=== PATIENT | female | born 1960 | race Caucasian/White ===

== ENCOUNTER → 2018-08-26 | Outpatient (CLI) | payer OTHER ==
[~2018-08-26] MED LIST: ACID REDUCER75 MG PO; DIAZEPAM2 MG PO; FUROSEMIDE40 MG PO; KLOR-CON 88 ME1 PO; LASIX40 MG PO; LASIX80 MG PO; LISINOPRIL2.5 MG PO; MEDROL DOSEPAK4 MG PO; MOM30 ML PO; MOTRIN800 MG PO; MULTI VITAMINS1 TAB PO; NITROSTAT0.4 MG SL; NORCO 10-325 T1 EACH PO; PLAVIX75 M1 PO; PREDNICOT20 MG PO; RAMIPRIL2.5 MG PO; SLOW-K 8MEQ8 MEQ PO; TYLENOL325 M2 PO; VICODIN 5/500 505 MG PO; VICODIN 500 MG-1 TAB PO; VICODIN1 TAB PO; VOLTAREN50 M1 PO; WELCHOL625 MG PO; XANAX0.25 MG PO; ZOCOR40 MG PO
== END | disposition home or self-care (01) ==
LOC: ORTHO 00:39
DX: R22.31 Localized swelling, mass and lump, right upper limb (principal)

== ENCOUNTER 2019-11-13 11:29 | Emergency (ER) | payer OTHER ==
[~2019-11-13] VITALS: Ht 175.2 cm; Wt 87.1 kg
[2019-11-13 12:12] LABS: BASO % 0.3 % (0.0-1.0); EOS # 0.1 10*3/uL (0.0-0.4); EOS % 0.7 % (1.0-4.0); HEMATOCRIT 31.2 % (37.0-47.0); LYMPH # 2.8 10*3/uL (1.3-4.4); LYMPH % 24.2 % (27.0-41.0); MEAN CELL VOLUME 93.1 fl (81.0-99.0); MEAN CORPUSCULAR HGB 28.7 pg (27.0-31.0); MEAN CORPUSCULAR HGB CONC 30.8 g/dl (33.0-37.0); MEAN PLATELET VOLUME 9.1 fl (9.6-12.3); MONO # 0.5 10*3/uL (0.1-1.0); MONO % 4.3 % (3.0-9.0); NEUT # 8.2 10*3/uL (2.3-7.9); NEUT % 70.3 % (47.0-73.0); PLATELET COUNT AUTOMATED 343 10*3/uL (130-400); RED BLOOD COUNT 3.35 10*6/uL (4.10-5.10); RED CELL DISTRI WIDTH 14.3 % (0-14.5); WHITE BLOOD COUNT 11.7 10*3/uL (4.8-10.8)
[2019-11-13 12:27] LABS: ALBUMIN 2.9 gm/dl (3.1-4.5); ALKALINE PHOSPHATASE 87 U/L (45-117); BUN 9 mg/dl (7-24); CHLORIDE 106 mmol/L (98-107); CREATININE 0.81 mg/dL (0.55-1.02); LIPASE 42 U/L (73-393); POTASSIUM 3.3 mmol/L (3.5-5.1); SGOT/AST 8 IU/L (3-35); SGPT/ALT 21 U/L (12-78); SODIUM 137 mmol/L (136-145); TOTAL PROTEIN 7.3 gm/dL (6.4-8.2)
[2019-11-13] MEDS ORDERED: DICYCLOMINE HCL10 MG PO ×2 (12:43→14:25)
== END 2019-11-13 12:52 | disposition home or self-care (01) ==
LOC: ED 11:29
PROVIDERS: Physician Assistant
DX: R10.9 Unspecified abdominal pain (principal); E78.00 Pure hypercholesterolemia, unspecified; M19.90 Unspecified osteoarthritis, unspecified site; F17.200 Nicotine dependence, unspecified, uncomplicated; Z88.8 Allergy status to other drugs, medicaments and biological substances; Z79.899 Other long term (current) drug therapy; Z95.1 Presence of aortocoronary bypass graft

== ENCOUNTER 2019-11-25 23:43 | Emergency (ER) | payer OTHER ==
[~2019-11-25] VITALS: Ht 175.3 cm; Wt 89.4 kg
[~2019-11-25 23:43] MED LIST changes: +DICYCLOMINE HCL10 MG PO
[2019-11-26 00:06] LABS: BASO # 0.1 10*3/uL (0.0-0.1); BASO % 0.4 % (0.0-1.0); EOS # 0.1 10*3/uL (0.0-0.4); EOS % 1.1 % (1.0-4.0); HEMATOCRIT 26.3 % (37.0-47.0); LYMPH # 2.2 10*3/uL (1.3-4.4); LYMPH % 18.2 % (27.0-41.0); MEAN CORPUSCULAR HGB 27.3 pg (27.0-31.0); MEAN CORPUSCULAR HGB CONC 29.7 g/dl (33.0-37.0); MEAN PLATELET VOLUME 9.2 fl (9.6-12.3); MONO # 0.6 10*3/uL (0.1-1.0); MONO % 4.5 % (3.0-9.0); NEUT # 9.2 10*3/uL (2.3-7.9); NEUT % 75.5 % (47.0-73.0); PLATELET COUNT AUTOMATED 402 10*3/uL (130-400); RED BLOOD COUNT 2.86 10*6/uL (4.10-5.10); WHITE BLOOD COUNT 12.2 10*3/uL (4.8-10.8)
[2019-11-26 00:19] LABS: ALBUMIN 2.8 gm/dl (3.1-4.5); ALKALINE PHOSPHATASE 77 U/L (45-117); BUN 11 mg/dl (7-24); CHLORIDE 105 mmol/L (98-107); LIPASE 51 U/L (73-393); SGOT/AST 14 IU/L (3-35); SGPT/ALT 16 U/L (12-78); SODIUM 139 mmol/L (136-145); TOTAL PROTEIN 7.1 gm/dL (6.4-8.2)
[2019-11-26 00:39] LABS: BILIRUBIN NEGATIVE (NEGATIVE); BLOOD TRACE-INTACT (NEGATIVE); CLARITY SL CLOUDY (CLEAR); COLOR YELLOW (YELLOW); GLUCOSE NEGATIVE (NEGATIVE); KETONE NEGATIVE (NEGATIVE); NITRITE NEGATIVE (NEGATIVE); UROBILINOGEN 0.2 E.U./dl (0.2-1.0)
[2019-11-26 00:41] LABS: LEUKO ESTERASE NEGATIVE (NEGATIVE)
[2019-11-26 00:45] LABS: BACTERIA 2+; EPITHELIAL CELLS 21-30
== END 2019-11-26 06:38 | disposition short-term general hospital (02) ==
LOC: ED 23:43
PROVIDERS: Nurse Practitioner Family
DX: R19.00 Intra-abdominal and pelvic swelling, mass and lump, unspecified site (principal); R91.8 Other nonspecific abnormal finding of lung field; R11.0 Nausea; Z88.7 Allergy status to serum and vaccine; Z88.6 Allergy status to analgesic agent; Z79.899 Other long term (current) drug therapy

== ENCOUNTER 2020-02-27 18:56 | Emergency (ER) | payer OTHER ==
[~2020-02-27] VITALS: Ht 172.7 cm; Wt 74.8 kg
[2020-02-27 20:14] LABS: BILIRUBIN 3+ (Negative); BLOOD Negative (Negative); CLARITY Cloudy (Clear); COLOR Dark Yellow (Yellow); GLUCOSE Negative (Negative); KETONE 2+ (Negative); LEUKO ESTERASE 1+ (Negative); NITRITE Positive (Negative); PH 5.5 (4.5-8.0); SPECIFIC GRAVITY >= 1.030 (1.001-1.030)
[2020-02-27 20:16] LABS: BASO % 0.3 % (0.0-1.0); EOS % 0.2 % (1.0-4.0); HEMATOCRIT 30.5 % (37.0-47.0); LYMPH # 0.8 10*3/uL (1.3-4.4); LYMPH % 6.5 % (27.0-41.0); MEAN CELL VOLUME 83.8 fl (81.0-99.0); MEAN CORPUSCULAR HGB 23.6 pg (27.0-31.0); MEAN CORPUSCULAR HGB CONC 28.2 g/dl (33.0-37.0); MEAN PLATELET VOLUME 9.2 fl (9.6-12.3); MONO # 0.7 10*3/uL (0.1-1.0); MONO % 5.4 % (3.0-9.0); NEUT # 11.3 10*3/uL (2.3-7.9); NEUT % 87.3 % (47.0-73.0); PLATELET COUNT AUTOMATED 434 10*3/uL (130-400); RED BLOOD COUNT 3.64 10*6/uL (4.10-5.10); RED CELL DISTRI WIDTH 20.9 % (0-14.5); WHITE BLOOD COUNT 12.9 10*3/uL (4.8-10.8)
[2020-02-27 20:23] LABS: BACTERIA TRACE
[2020-02-27 20:32] LABS: ALBUMIN 2.4 gm/dl (3.1-4.5); ALKALINE PHOSPHATASE 446 U/L (45-117); BUN 12 mg/dl (7-24); CHLORIDE 101 mmol/L (98-107); CREATININE 0.64 mg/dL (0.55-1.02); LIPASE 215 U/L (73-393); POTASSIUM 3.7 mmol/L (3.5-5.1); SGOT/AST 108 IU/L (3-35); SGPT/ALT 53 U/L (12-78); SODIUM 136 mmol/L (136-145); TOTAL PROTEIN 7.8 gm/dL (6.4-8.2)
[2020-02-27] MEDS ORDERED: CEPHALEXIN500 M1 PO (23:12)
== END 2020-02-27 23:45 | disposition home or self-care (01) ==
LOC: ED 18:56
PROVIDERS: Emergency Medicine
DX: E86.0 Dehydration (principal); N39.0 Urinary tract infection, site not specified; K86.89 Other specified diseases of pancreas; Z88.7 Allergy status to serum and vaccine; Z79.899 Other long term (current) drug therapy

== ENCOUNTER 2020-02-29 05:24 | Emergency (ER) | payer OTHER ==
[~2020-02-29] VITALS: Ht 172.7 cm; Wt 73.9 kg
[~2020-02-29 05:24] MED LIST changes: +CEPHALEXIN500 M1 PO
[2020-02-29 06:02] LABS: BILIRUBIN 3+ (Negative); BLOOD Negative (Negative); CLARITY Cloudy (Clear); COLOR Dark Yellow (Yellow); GLUCOSE Negative (Negative); KETONE 1+ (Negative); LEUKO ESTERASE 2+ (Negative); NITRITE Positive (Negative); SPECIFIC GRAVITY 1.025 (1.001-1.030)
[2020-02-29 06:14] LABS: BASO % 0.2 % (0.0-1.0); EOS % 0.2 % (1.0-4.0); HEMATOCRIT 31.2 % (37.0-47.0); LYMPH # 1.4 10*3/uL (1.3-4.4); LYMPH % 10.6 % (27.0-41.0); MEAN CELL VOLUME 83.4 fl (81.0-99.0); MEAN CORPUSCULAR HGB 24.1 pg (27.0-31.0); MEAN CORPUSCULAR HGB CONC 28.8 g/dl (33.0-37.0); MEAN PLATELET VOLUME 9.3 fl (9.6-12.3); MONO # 0.7 10*3/uL (0.1-1.0); MONO % 5.3 % (3.0-9.0); NEUT # 10.9 10*3/uL (2.3-7.9); NEUT % 83.2 % (47.0-73.0); PLATELET COUNT AUTOMATED 510 10*3/uL (130-400); RED BLOOD COUNT 3.74 10*6/uL (4.10-5.10); RED CELL DISTRI WIDTH 21.3 % (0-14.5); WHITE BLOOD COUNT 13.2 10*3/uL (4.8-10.8)
[2020-02-29 06:26] LABS: BACTERIA 3+; EPITHELIAL CELLS 41-50; MUCOUS 2+; WBC 31-40 wbc/hpf (0-5)
[2020-02-29 06:30] LABS: ALBUMIN 2.6 gm/dl (3.1-4.5); ALKALINE PHOSPHATASE 518 U/L (45-117); BUN 11 mg/dl (7-24); CHLORIDE 100 mmol/L (98-107); CREATININE 0.71 mg/dL (0.55-1.02); POTASSIUM 3.5 mmol/L (3.5-5.1); SGOT/AST 146 IU/L (3-35); SGPT/ALT 75 U/L (12-78); SODIUM 136 mmol/L (136-145); TOTAL PROTEIN 8.3 gm/dL (6.4-8.2)
[2020-02-29] MEDS ORDERED: CIPRO500 MG PO (07:54)
== END 2020-02-29 07:56 | disposition home or self-care (01) ==
LOC: ED 05:24
PROVIDERS: Emergency Medicine
DX: N39.0 Urinary tract infection, site not specified (principal); Z88.8 Allergy status to other drugs, medicaments and biological substances; Z79.899 Other long term (current) drug therapy